=== PATIENT | male | born 1965 | race Caucasian/White ===

== ENCOUNTER 2023-11-21 13:36 | Emergency (ER) | payer MEDICAID, OTHER ==
[~2023-11-21] VITALS: Ht 165.1 cm; Wt 72.7 kg
[~2023-11-21 13:36] MED LIST: MED
[2023-11-21 13:44] VITALS: BP 140/91; PULSE 76; RESP 16; TEMP 98.2; O2SAT 97
[2023-11-21 15:15] LABS: BASOPHILS % 0.5 % (0.0-2.0); EOSINOPHILS % 1.2 % (0.0-5.0); HEMATOCRIT. 46.5 % (42.0-52.0); HEMOGLOBIN. 15.7 g/dL (14.0-18.0); LYMPHOCYTES % 19.9 % (20.0-50.0); MEAN CORPUSCULAR HEMOGLOBIN 30.2 pg (28.0-32.0); MEAN CORPUSCULAR HGB CONC 33.8 g/dL (31.0-37.0); MEAN CORPUSCULAR VOLUME 89.1 fL (80.0-94.0); MEAN PLATELET VOLUME 7.2 fl (7.4-10.4); MONOCYTES % 13.1 % (2.0-8.0); NEUTROPHILS % 65.3 % (40.0-76.0); PLATELET 212 x1000/uL (130-400); RED BLOOD CELL COUNT 5.21 mill/uL (4.7-6.1); RED CELL DISTRIBUTION WIDTH 15.9 % (11.6-14.6); WHITE BLOOD COUNT 4.8 x1000/uL (4.5-11.0)
[2023-11-21 15:20] LABS: CHLORIDE 106 mEq/L (98-107); POTASSIUM 3.6 mEq/L (3.5-5.1); SODIUM 142 mEq/L (136-145)
[2023-11-21 15:21] LABS: CARBON DIOXIDE 25 mEq/L (21-32)
[2023-11-21 15:22] LABS: CALCIUM 9.3 mg/dL (8.7-10.4)
[2023-11-21 15:26] LABS: CREATININE 0.7 mg/dL (0.6-1.3); GLUCOSE 106 mg/dL (70-105)
[2023-11-21 15:28] LABS: TROPONIN I HIGH SENSITIVITY 5 ng/L (3.0-53)
[2023-11-21 15:40] LABS: UREA NITROGEN BLOOD < 5 mg/dL (9-23)
== END 2023-11-21 17:35 | disposition home or self-care (01) ==
LOC: ER 13:36 → EDBEDREQ 14:42 → CANBEDREQ 16:23 → ER 17:35
DX: R53.1 Weakness (principal)
CPT/HCPCS: 36415; 71045; 80048; 83880; 84484; 85025; 93005; 99285